=== PATIENT | female | born 1985 | race Caucasian/White ===

== ENCOUNTER 2016-11-30 18:17 | Inpatient (IN) ==
--- NOTE | 2016-11-30 18:19 | Emergency Department Note ---
Disposition Clinical Impression: Anxiety, Depression, Suicidal ideation Disposition: Admitted As Inpatient Condition: Fair Referrals: NO,PCP [Primary Care Provider] - Forms: ED Satisfaction Letter General Adult HPI - General Chief complaint: ED Overdose Stated complaint: Overdose Time Seen by Provider: 11/30/16 18:19 - History of Present Illness HPI Narrative: 30-year-old female history of chronic anxiety and depression reports to the emergency department via EMS, there is concern that she used heroin. The patient states she has been increasingly anxious and just wanted to escape, she wishes she had never woken up. There is concern that she attempted to overdose. The patient reports somewhat from her family must of called EMS. She does not represent everything that happened. There is no history of previous diabetes or hypoglycemia. There is no history of seizure-like activity or trauma. The patient denies any injuries or pain or self-injurious behavior otherwise. There is no history of head trauma, no history of bowel or bladder problems or weakness or numbness in the arms or legs. There is no history of abdominal pain vomiting or diarrhea. No chest pain or shortness of breath cough no blood or fever. No neck stiffness or rash. No acute back pain vaginal discharge or bleeding noted or reported. The patient has been taking antidepressant medication for many years. She reports they are not helpful. She feels hopeless and apparently attempted to end her life via her heroin injection. 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 Past Medical History - Past Medical History Medical history: Reports: no medical history, other - Social History Smoking Status: Never smoker Smokeless Tobacco Status: No Alcohol use: Reports: none Physical Exam - General Limitations: no limitations General appearance: alert, anxious, other (Laying supine on the gurney cooperative communicative appears to be anxious and tearful.) - Head Head exam: atraumatic, normocephalic, normal inspection - Eye Eye exam: Present: normal appearance, PERRL, EOMI - ENT ENT exam: normal exam, normal oropharynx, mucous membranes moist - Neck Neck exam: Present: full ROM, trachea midline, other (Minor erythema about the neck area without laceration or bruising.). Absent: tenderness, meningismus - Chest Chest inspection: Present: symmetric chest wall rise. Absent: tenderness - Respiratory Respiratory exam: Present: normal lung sounds bilaterally. Absent: respiratory distress - Cardiovascular Cardiovascular exam: Present: regular rate, normal rhythm, normal heart sounds - Abdominal Exam Abdominal exam: Present: soft, Non-Tender. Absent: tenderness, distention, guarding, rebound, rigidity, trauma - Extremities Exam Extremities exam: Present: normal inspection, full ROM, normal capillary refill , other (All extremities are warm and well perfused without cyanosis or edema no evidence of injury.). Absent: tenderness, pedal edema, joint swelling, calf tenderness - Expanded Lower Extremity Exam Lower leg exam: Absent: Homans' sign Neurovascular/Tendon exam: Absent: motor deficit, sensory deficit, tendon deficit - Back Exam Back exam: Present: normal inspection, full ROM. Absent: tenderness, CVA tenderness (R), CVA tenderness (L), vertebral tenderness - Neurological Exam Neurological exam: Present: alert, oriented X3, CN II-XII intact. Absent: motor sensory deficit - Psychiatric Psychiatric exam: Present: anxious, other (Tearful but cooperative and alert.) - Skin Skin exam: Present: warm, dry, intact, normal color. Absent: rash, cyanosis, diaphoresis, pallor, mottled Course Vital Signs Temperature 97.6 F 11/30/16 18:19 Pulse Rate 92 11/30/16 18:19 Respiratory Rate 16 11/30/16 18:19 Blood Pressure 151/92 11/30/16 18:19 O2 Sat by Pulse Oximetry 99 11/30/16 18:19 Temperature 97.6 F 11/30/16 18:19 Pulse Rate 93 11/30/16 19:16 Respiratory Rate 16 11/30/16 19:16 Blood Pressure 132/89 11/30/16 19:16 O2 Sat by Pulse Oximetry 99 11/30/16 19:16 Oxygen Delivery Oxygen Delivery Room Air Medical Decision Making - [facility] Narrative Medical decision making narrative: The patient has been anxious and depressed, and based on what history we can gather she was attempting to commit suicide by heroin overdose. Her urine toxicology is negative however. The patient has remained stable in the ED and has not been somnolent for confused. She has been somewhat tearful. There is no evidence of physical trauma or overt lab abnormality. She appears to be stable from a medical standpoint. We have consulted psychiatric service for evaluation. Psychiatry has evaluated the patient she will be admitted to their service. - Lab Data Lab results reviewed: Yes I reviewed the patient's lab results. Result diagrams: 11/30/16 18:54 11/30/16 18:54 Lab Results 11/30/16 11/30/16 11/30/16 Range/Units 18:46 18:46 18:54 WBC 13.7 H (4.3-11.1) K/mcL RBC 4.56 (3.82-4.97) M/mcL Hgb 13.4 (11.5-15.4) g/dL Hct 39.9 (35.3-44.9) % MCV 87.5 (83.0-100.0) fL MCH 29.4 (28.0-33.3) pg MCHC 33.6 (31.6-35.5) g/dL RDW 13.3 (11.5-14.5) % Plt Count 306 (140-400) K/mcL MPV 9.3 L (9.4-12.4) fL Immature Gran % 0.6 (0-4) % Seg Neutrophils % 81.3 % Lymphocytes % 14.1 % Monocytes % 3.6 % Eosinophils % 0.1 % Basophils % 0.3 % Neutrophils # 11.2 H (1.6-8.9) K/mcL Lymphocytes # 1.9 (0.6-4.6) K/mcL Monocytes # 0.5 (0.0-1.3) K/mcL Eosinophils # 0.0 (0.0-0.6) K/mcL Basophils # 0.0 (0.0-0.2) K/mcL Sodium (136-145) mEq/L Potassium (3.5-4.5) mEq/L Chloride (98-109) mEq/L Carbon Dioxide (19-29) mEq/L BUN (7-20) mg/dL Creatinine (0.57-1.11) mg/dL Est GFR ( Amer) (> 60) Est GFR (Non-Af Amer) (> 60) BUN/Creatinine Ratio (6-26) Glucose (70-99) mg/dL Calculated Osmolality (280-300) Calcium (8.6-10.8) mg/dL Urine Color Yellow (Yellow) Urine Clarity Clear (Clear) Urine pH 6.0 (5.0-8.0) pH Units Ur Specific [place] 1.020 (1.010-1.025) Urine Protein 30 H (Neg-Trace) mg/dL Urine Glucose (UA) 100 H (Normal) mg/dL Urine Ketones Negative (Negative) mg/dL Urine Blood Negative (Negative) Urine Nitrite Negative (Negative) Urine Bilirubin Negative (Negative) Urine Urobilinogen Normal (Normal) mg/dL Ur Leukocyte Esterase Negative (Negative) Urine Microscopic RBC 0-3 (0-3) per hpf Urine Microscopic WBC 0-3 (0-3) per hpf Ur Squamous Epith Cells Many H (None-Few) per lpf Urine Bacteria Few (None-Few) per hpf Hyaline Casts None Seen (None-Few) per lpf Urine Yeast Few H (None Seen) per hpf Salicylates (15-30) mg/dL Urine Opiates Screen Negative (Yelxje=017) ng/mL Acetaminophen (10-30) mcg/mL Ur Barbiturates Screen Negative (Cdfrin=285) ng/mL Ur Phencyclidine Scrn Negative (Cutoff=25) ng/mL Ur Amphetamines Screen Negative (Wbgvun=9029) ng/mL U Benzodiazepines Scrn Negative (Vxwefo=427) ng/mL Urine Cocaine Screen Negative (Cutoff= 300) ng/mL U Marijuana (THC) Screen Negative (Cutoff = 50) ng/mL Ethyl Alcohol (0-10) mg/dL 11/30/16 Range/Units 18:54 WBC (4.3-11.1) K/mcL RBC (3.82-4.97) M/mcL Hgb (11.5-15.4) g/dL Hct (35.3-44.9) % MCV (83.0-100.0) fL MCH (28.0-33.3) pg MCHC (31.6-35.5) g/dL RDW (11.5-14.5) % Plt Count (140-400) K/mcL MPV (9.4-12.4) fL Immature Gran % (0-4) % Seg Neutrophils % % Lymphocytes % % Monocytes % % Eosinophils % % Basophils % % Neutrophils # (1.6-8.9) K/mcL Lymphocytes # (0.6-4.6) K/mcL Monocytes # (0.0-1.3) K/mcL Eosinophils # (0.0-0.6) K/mcL Basophils # (0.0-0.2) K/mcL Sodium 141 (136-145) mEq/L Potassium 3.4 L (3.5-4.5) mEq/L Chloride 104 (98-109) mEq/L Carbon Dioxide 24 (19-29) mEq/L BUN 18 (7-20) mg/dL Creatinine 0.90 (0.57-1.11) mg/dL Est GFR ( Amer) > 60 (> 60) Est GFR (Non-Af Amer) > 60 (> 60) BUN/Creatinine Ratio 20 (6-26) Glucose 95 (70-99) mg/dL Calculated Osmolality 294 (280-300) Calcium 9.2 (8.6-10.8) mg/dL Urine Color (Yellow) Urine Clarity (Clear) Urine pH (5.0-8.0) pH Units Ur Specific [place] (1.010-1.025) Urine Protein (Neg-Trace) mg/dL Urine Glucose (UA) (Normal) mg/dL Urine Ketones (Negative) mg/dL Urine Blood (Negative) Urine Nitrite (Negative) Urine Bilirubin (Negative) Urine Urobilinogen (Normal) mg/dL Ur Leukocyte Esterase (Negative) Urine Microscopic RBC (0-3) per hpf Urine Microscopic WBC (0-3) per hpf Ur Squamous Epith Cells (None-Few) per lpf Urine Bacteria (None-Few) per hpf Hyaline Casts (None-Few) per lpf Urine Yeast (None Seen) per hpf Salicylates < 5.0 L (15-30) mg/dL Urine Opiates Screen (Kamudx=893) ng/mL Acetaminophen < 1.0 L (10-30) mcg/mL Ur Barbiturates Screen (Qcyndr=141) ng/mL Ur Phencyclidine Scrn (Cutoff=25) ng/mL Ur Amphetamines Screen (Rrlkbx=1338) ng/mL U Benzodiazepines Scrn (Vneinw=115) ng/mL Urine Cocaine Screen (Cutoff= 300) ng/mL U Marijuana (THC) Screen (Cutoff = 50) ng/mL Ethyl Alcohol < 10 (0-10) mg/dL
[2016-11-30 19:01] LABS: Bilirubin,Urine Negative (Negative); Blood,Urine Negative (Negative); Clarity,Urine Clear (Clear); Color,Urine Yellow (Yellow); Glucose,Urine (UA) 100 mg/dL (Normal); Ketones,Urine Negative (Negative); Leukocyte Esterase,Urine Negative (Negative); Nitrite,Urine Negative (Negative); Protein,Urine 30 mg/dL (Neg-Trace); Urobilinogen,Urine Normal (Normal)
[2016-11-30 19:03] LABS: Bacteria,Urine Few per hpf (None-Few); Hyaline Casts,Urine None Seen per lpf (None-Few); Squamous Epithelial Cell,Urine Many per lpf (None-Few); WBC,Urine 0-3 per hpf (0-3)
[2016-11-30 19:09] LABS: Basophils % 0.3 %; Eosinophils % 0.1 %; Hematocrit 39.9 % (35.3-44.9); Hemoglobin 13.4 g/dL (11.5-15.4); Immature Granulocytes % 0.6 % (0-4); Lymphocytes # 1.9 K/mcL (0.6-4.6); Lymphocytes % 14.1 %; Mean Corpuscular HGB Conc 33.6 g/dL (31.6-35.5); Mean Corpuscular Hemoglobin 29.4 pg (28.0-33.3); Mean Corpuscular Volume 87.5 fL (83.0-100.0); Mean Platelet Volume 9.3 fL (9.4-12.4); Monocytes # 0.5 K/mcL (0.0-1.3); Monocytes % 3.6 %; Neutrophils # 11.2 K/mcL (1.6-8.9); Platelet Count 306 K/mcL (140-400); Red Blood Count 4.56 M/mcL (3.82-4.97); Red Cell Distribution Width 13.3 % (11.5-14.5); Segmented Neutrophils % 81.3 %
[2016-11-30 19:09] LABS: Amphetamine Screen,Urine Negative ng/mL (Cutoff=1000); Barbiturate Screen,Urine Negative ng/mL (Cutoff=200); Benzodiazepines Screen,Urine Negative ng/mL (Cutoff=200); Cannabinoid Screen,Urine Negative ng/mL (Cutoff = 50); Cocaine Screen,Urine Negative ng/mL (Cutoff= 300); Opiate Screen,Urine Negative ng/mL (Cutoff=300); Phencyclidine Screen,Urine Negative ng/mL (Cutoff=25)
[2016-11-30 19:14] LABS: RBC,Urine 0-3 per hpf (0-3); Yeast,Urine Few per hpf (None Seen)
[2016-11-30 19:20] LABS: BUN/Creatinine Ratio 20 (6-26); Blood Urea Nitrogen 18 mg/dL (7-20); Calcium 9.2 mg/dL (8.6-10.8); Carbon Dioxide 24 mEq/L (19-29); Chloride 104 mEq/L (98-109); Glucose 95 mg/dL (70-99); Osmolality,Calculated 294 (280-300); Potassium 3.4 mEq/L (3.5-4.5); Sodium 141 mEq/L (136-145); eGFR For African Americans > 60 (> 60); eGFR For Non-African Americans > 60 (> 60)
[2016-11-30 19:21] LABS: Acetaminophen < 1.0 mcg/mL (10-30); Ethanol < 10 mg/dL (0-10); Salicylate < 5.0 mg/dL (15-30)
[2016-11-30] MEDS ORDERED: MOM Conc 10 ML UD.LIQ PO PRN (21:26)
[2016-11-30] MEDS ORDERED: Acetaminophen 325 MG TABLET PO PRN (21:26)
[2016-11-30] MEDS ORDERED: *HR* LORazepam 2 MG/ML VIAL IM PRN (21:26)
[2016-11-30] MEDS ORDERED: Mag Hydrox/Al Hydrox/Simeth 30 ML UDC PO PRN (21:26)
[2016-11-30] MEDS ORDERED: Haloperidol Lactate 5 MG/ML VIAL IM PRN (21:26)
[2016-11-30] MEDS ORDERED: *HR* LORazepam 1 MG TABLET PO PRN (21:26)
[2016-11-30] MEDS: traZODone 50 MG TABLET PO PRN (21:42)
[2016-11-30] MEDS: hydrOXYzine pamoate 25 MG CAPSULE PO PRN (21:42)
[2016-12-01] MEDS: hydrOXYzine pamoate 25 MG CAPSULE PO PRN (09:46)
--- NOTE | 2016-12-01 15:42 | Psychiatry History & Physical ---
Date of Encounter: 12/01/16 Time of Encounter: 15:10 History of Present Illness Patient Stated Chief Complaint: "I guess I overdosed." Medicare Admission Attestation: For traditional Medicare patients the provided hospital inpatient services are reasonable and necessary and in the case of services not specified as inpatient -only under 42 CFR 419.22 (n), that they are appropriately provided as inpatient services in accordance 42 CFR 412.3. For Critical Access Hospital the patient may reasonably be expected to be discharged or transferred to a hospital within 96 hours after admission to the Critical Access Hospital. Admitted From: Emergency Dept Plans for Post Hospital Care: Home History of Present Illness: Ms. Lee is a 31 year old female admitted to 1A psychiatric unit after a possible suicide attempt via overdose. Patient states that she thinks she overdosed but denies doing it intentionally. She has been increasingly depressed lately. Her boyfriend is in [place] [facility] for not paying child support, her birthday is today, and she is living with her parents and has not job and no financial income to support herself. She tells me the previous night that she had a couple of beers, took a couple Xanax she bought off somebody and then "shot up a small amount of heroin". (Note: her UDS was clean of all drugs of abuse in the ED) She states the next thing she remembers was waking up with her father over her and the paramedics. She is visibly upset at what she did. 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 She said that Suboxone was tapered off in September 2016 as her father did not want her taking it. He referred to it as "Synthetic heroin. " She has been clean from drugs for the past 3 months. She states that she has been feeling more depressed lately having low energy, problems sleeping, feeling helpless about life secondary to not having a job and financial issues. She stated with her birthday coming up she is feeling more hopeless about things and feeling depressed about her support system. She told me "My dad gives me no support. He does not even acknowledge me at times" . She talks about her frustration of not having a job nor having a drivers license being able to get to work if she did have work available. She does not feel like doing things that she used to do, and has a hard time sleeping at night secondary to depressive ruminations. She denies active suicidal or homicidal ideation, she denies auditory or visual hallucinations, she denies mind reading/thought control, she denies any type of paranoia, she denies any gambling or other impulsive acts. She states that she regrets what she did, and acknowledges that she needs some kind of help with her depression. She states that she has been on Paxil for the most part the last 15 years plus. She used to be on 60 mg/day, but that Dr. Kalyan castillo at [place] had lowered it and she is not sure why. She states that she has been tried on Celexa and Lexapro in the past and that did not help. Past Med Surg Social Fam HX - Past Medical History Medical history: no medical history - Past Psychiatric History Psychiatric history: Reports: depression, previous psychiatric hospitalization Past psychiatric history details: She states that she cut her wrist in 2006 after being arrested fro a DUI secondary to all the stress Family psychiatric history: Yes Family Psychiatric History Details: Father: Anxiety. 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 - Family History Mother Hx Family Cardiac Disorders: Yes (hypertension) Father Hx Family Psychosocial Disorders: Yes (anxiety) Medications & Allergies Paroxetine HCl [Paxil] 20 mg PO BID #60 tablet 06/10/15 [Rx] Paxil 06/10/15 [History] Allergies No Known Allergies Allergy (Verified 06/10/15 15:51) Review of Systems Psychiatric: Reports: depression, anxiety, abnormal sleep pattern, suicidal ideation, hopelessness Mental Status Exam Patient orientation: Yes Person, Yes Time, Yes Place, Yes Circumstance Level of alertness: Alert Patient appearance: Well Groomed Behavior: anxious, tearful Psychomotor activity: Normal Eye contact: Fleeting Contact Mood description: Depressed Affect description: congruent with mood Speech pattern: Normal rate, Normal rhythm, Normal tone, Appropriate Speech volume: Normal Thought process: Linear Thought content: Yes Suicidal ideation (passive; helpless in life) Attention span: Capable of Focused Attention Memory description: Grossly Intact Patient reliability: Questionable Historian Intelligence estimate: Above [place] Judgment: Fair Insight: Partial Results - Vital Signs Vital signs: Temp Pulse Resp BP Pulse Ox 98.1 F 96 16 120/83 99 12/01/16 08:52 12/01/16 08:52 12/01/16 08:52 12/01/16 08:52 11/30/16 19:16 - Labs Labs: Laboratory Last Values WBC 13.7 K/mcL (4.3-11.1) H 11/30/16 18:54 RBC 4.56 M/mcL (3.82-4.97) 11/30/16 18:54 Hgb 13.4 g/dL (11.5-15.4) 11/30/16 18:54 Hct 39.9 % (35.3-44.9) 11/30/16 18:54 MCV 87.5 fL (83.0-100.0) 11/30/16 18:54 MCH 29.4 pg (28.0-33.3) 11/30/16 18:54 MCHC 33.6 g/dL (31.6-35.5) 11/30/16 18:54 RDW 13.3 % (11.5-14.5) 11/30/16 18:54 Plt Count 306 K/mcL (140-400) 11/30/16 18:54 MPV 9.3 fL (9.4-12.4) L 11/30/16 18:54 Immature Gran % 0.6 % (0-4) 11/30/16 18:54 Seg Neutrophils % 81.3 % 11/30/16 18:54 Lymphocytes % 14.1 % 11/30/16 18:54 Monocytes % 3.6 % 11/30/16 18:54 Eosinophils % 0.1 % 11/30/16 18:54 Basophils % 0.3 % 11/30/16 18:54 Neutrophils # 11.2 K/mcL (1.6-8.9) H 11/30/16 18:54 Lymphocytes # 1.9 K/mcL (0.6-4.6) 11/30/16 18:54 Monocytes # 0.5 K/mcL (0.0-1.3) 11/30/16 18:54 Eosinophils # 0.0 K/mcL (0.0-0.6) 11/30/16 18:54 Basophils # 0.0 K/mcL (0.0-0.2) 11/30/16 18:54 Sodium 141 mEq/L (136-145) 11/30/16 18:54 Potassium 3.4 mEq/L (3.5-4.5) L 11/30/16 18:54 Chloride 104 mEq/L (98-109) 11/30/16 18:54 Carbon Dioxide 24 mEq/L (19-29) 11/30/16 18:54 BUN 18 mg/dL (7-20) 11/30/16 18:54 Creatinine 0.90 mg/dL (0.57-1.11) 11/30/16 18:54 Est GFR ( Amer) > 60 (> 60) 11/30/16 18:54 Est GFR (Non-Af Amer) > 60 (> 60) 11/30/16 18:54 BUN/Creatinine Ratio 20 (6-26) 11/30/16 18:54 Glucose 95 mg/dL (70-99) 11/30/16 18:54 Calculated Osmolality 294 (280-300) 11/30/16 18:54 Calcium 9.2 mg/dL (8.6-10.8) 11/30/16 18:54 Serum , Qual Negative (Negative) 11/30/16 18:59 Urine Color Yellow (Yellow) 11/30/16 18:46 Urine Clarity Clear (Clear) 11/30/16 18:46 Urine pH 6.0 pH Units (5.0-8.0) 11/30/16 18:46 Ur Specific [place] 1.020 (1.010-1.025) 11/30/16 18:46 Urine Protein 30 mg/dL (Neg-Trace) H 11/30/16 18:46 Urine Glucose (UA) 100 mg/dL (Normal) H 11/30/16 18:46 Urine Ketones Negative mg/dL (Negative) 11/30/16 18:46 Urine Blood Negative (Negative) 11/30/16 18:46 Urine Nitrite Negative (Negative) 11/30/16 18:46 Urine Bilirubin Negative (Negative) 11/30/16 18:46 Urine Urobilinogen Normal mg/dL (Normal) 11/30/16 18:46 Ur Leukocyte Esterase Negative (Negative) 11/30/16 18:46 Urine Microscopic RBC 0-3 per hpf (0-3) 11/30/16 18:46 Urine Microscopic WBC 0-3 per hpf (0-3) 11/30/16 18:46 Ur Squamous Epith Cells Many per lpf (None-Few) H 11/30/16 18:46 Urine Bacteria Few per hpf (None-Few) 11/30/16 18:46 Hyaline Casts None Seen per lpf (None-Few) 11/30/16 18:46 Urine Yeast Few per hpf (None Seen) H 11/30/16 18:46 Salicylates < 5.0 mg/dL (15-30) L 11/30/16 18:54 Urine Opiates Screen Negative ng/mL (Cseskj=571) 11/30/16 18:46 Acetaminophen < 1.0 mcg/mL (10-30) L 11/30/16 18:54 Ur Barbiturates Screen Negative ng/mL (Vmhgej=766) 11/30/16 18:46 Ur Phencyclidine Scrn Negative ng/mL (Cutoff=25) 11/30/16 18:46 Ur Amphetamines Screen Negative ng/mL (Lymitn=9429) 11/30/16 18:46 U Benzodiazepines Scrn Negative ng/mL (Oewulw=105) 11/30/16 18:46 Urine Cocaine Screen Negative ng/mL (Cutoff= 300) 11/30/16 18:46 U Marijuana (THC) Screen Negative ng/mL (Cutoff = 50) 11/30/16 18:46 Ethyl Alcohol < 10 mg/dL (0-10) 11/30/16 18:54 Assessment and Plan (1) Depression Current visit: Yes Status: Acute Plan: Admit inpatient for safety and stabilization, Close observation, Encourage participation in unit milieu, Group Therapy, Family/Supportive other meeting Risks, benefits, side effects, alternatives discussed w/pt: Yes ( Increase in Paxil to 60 mg) Patient agreeable to treatment: Yes Plans for Post Hospital Care: Home Estimated Length of Stay (Days): 5 Qualifiers: Depression Type: major depressive disorder Major depression recurrence: recurrent Active/Remission status: currently active Major depression episode severity: moderate Qualified Code(s): F33.1 - Major depressive disorder, recurrent, moderate
[2016-12-01] MEDS: traZODone 50 MG TABLET PO PRN (20:47)
--- NOTE | 2016-12-02 12:55 | Psychiatry Progress Note ---
Date of Encounter: 12/02/16 Time of Encounter: 11:30 Subjective Interval history: The patient tells me today "I feel better". She states that she did not sleep well last night because she was "thinking about everything". She had a visit on the unit with her mother and states that it went well. She tells me that her father did not come to visit. She denies craving drugs, she denies any withdrawal symptoms. There is no suicidal or homicidal ideation, no auditory or visual hallucinations. She denies any side effects from an increase in the Paxil. She is not feeling as helpless as she did before, nor is she feeling as hopeless as she did since having a discussion with her mother. She does state that her energy is still low and that she feels tired. She is future oriented to getting discharged and hopefully seeing her boyfriend tomorrow who is getting out of [facility]. She denies any racing thoughts. She is eating well and denies any other issues. Review of Systems Psychiatric: Reports: depression, anxiety, abnormal sleep pattern, hopelessness Objective: Exam Patient orientation: Yes Person, Yes Time, Yes Place, Yes Circumstance Level of alertness: Alert Patient appearance: Well Groomed Behavior: anxious Psychomotor activity: Normal Eye contact: Minimal Contact Mood description: Depressed Affect description: congruent with mood Speech pattern: Normal rate, Normal rhythm, Normal tone, Appropriate Speech volume: Normal Thought process: Linear, Goal Oriented Judgment: Fair Insight: Partial Results - Vital Signs Vital Signs: Temp Pulse Resp BP Pulse Ox 97.5 F L 99 18 115/84 99 12/02/16 08:59 12/02/16 08:59 12/02/16 08:59 12/02/16 08:59 11/30/16 19:16 Assessment and Plan (1) Depression Current visit: Yes Status: Acute Risks, benefits, side effects, alternatives discussed w/pt: Yes (Increase in Paxil to 60 mg) Patient agreeable to treatment: Yes Qualifiers: Depression Type: major depressive disorder Major depression recurrence: recurrent Active/Remission status: currently active Major depression episode severity: moderate Qualified Code(s): F33.1 - Major depressive disorder, recurrent, moderate Consult Discharge Plan - Plan Referrals: NO,PCP [Primary Care Provider] -
[2016-12-02] MEDS: traZODone 50 MG TABLET PO PRN (21:09)
[2016-12-02] MEDS: hydrOXYzine pamoate 25 MG CAPSULE PO PRN (23:02)
[2016-12-03 08:40] VITALS: BP 126/91
--- NOTE | 2016-12-03 11:40 | Discharge Summary ---
Date of Encounter: 12/03/16 Time of Encounter: 10:55 Diagnosis - Discharge Diagnosis (1) Depression Status: Acute Qualifiers: Depression Type: major depressive disorder Major depression recurrence: recurrent Active/Remission status: currently active Major depression episode severity: moderate Qualified Code(s): F33.1 - Major depressive disorder, recurrent, moderate Medications - Discharge Medications Prescriptions: Paroxetine [Paxil] 30 mg PO BID #60 tablet TraZODone 50 mg PO HS PRN #10 tablet PRN Reason: Insomnia Paroxetine [Paxil] 30 mg PO BID #60 tablet 12/03/16 [Rx] TraZODone 50 mg PO HS PRN #10 tablet 12/03/16 [Rx] Allergies No Known Allergies Allergy (Verified 06/10/15 15:51) Provider Date of admission: 11/30/16 20:29 Primary care physician: PCP NO Discharging clinician: Jose Francisco Rocha Assessment and Plan - Patient/Caregiver Discharge Instructions Activity: resume usual activities as tolerated Diet: regular diet - Follow up Plan Follow up with: [facility] [Outside] (Office staff will contact you directly to schedule your intake appointment for counseling and case management services. You will see psychiatric prescriber, Andie Torres, on 01/16/2017 at 11:00 AM. Please arrive 15 minutes early for this appointment to complete paperwork. You may contact the office regularly to check for cancellations that may allow you to be seen sooner by the psychiatric prescriber.) Functional capacity at discharge: independent ambulation Overall status at discharge: Stable Disposition: Home, Self-Care Hospital Course Hospital course: Ms. Lee is a 31 year old female who tells me this morning that she is feeling "Great. I'm ready to be discharged". She states that her father came in last night for a family visit. She tells me it went well overall. She tells me that he has a problem with anxiety, which might be part of the issue in his ability to communicate with her. But she also states that he is just different than me and has a hard time talking with me. She denies any suicidal or homicidal ideation, she denies any auditory/visual hallucinations. She states her depression has improved and she denies any side effects of the increase in Paxil. She states that she can be compliant with medication when she is discharged without issue. She is sleeping well and is hopeful that things will continue to get better. She is not having any craving for any heroin or other drugs. She does not plan to go back on Suboxone. She is ready for discharge and will call a family member to let them know she can be picked up.She had a visit with her mother the night previous that went well. She states her mother is very supportive and understanding and she can talk to her about things. 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 Her boyfriend is being released from [facility] sn[facility] today, child support issues, and she is looking forward to seeing him tonight. - Time Spent with Patient Total time spent providing and/or coordinating discharge services: 20 min Less than 30 minutes Quality - Multiple Antipsychotics Patient discharged on 2 or more antipsychotic medications: No Procedures - Procedures Procedures: Medication Management, Crisis Stabilization, Psychoeducational Therapy Mental Status Exam - Mental Status Exam Patient orientation: Yes Person, Yes Time, Yes Place, Yes Circumstance Level of alertness: Alert Patient appearance: Well Groomed Behavior: calm Psychomotor activity: Normal Eye contact: Maintains Eye Contact Mood description: Euthymic/stable Affect description: congruent with mood Speech pattern: Normal rate, Normal rhythm, Normal tone, Appropriate Speech Volume: Normal Thought process: Linear, Goal Oriented Thought Content: Yes Intact Judgment: Good Insight: Partial
== END 2016-12-03 17:05 | disposition home or self-care (01) | DRG 812 ==
LOC: EMEROO 18:17 → 1ANU 20:29
PROVIDERS: ADMIT Psychiatry & Neurology Psychiatry; ATTEND Psychiatry & Neurology Psychiatry

== ENCOUNTER 2019-05-17 19:03 | Observation (INO) ==
--- NOTE | 2019-05-17 19:15 | Emergency Department Note ---
Disposition Clinical Impression: Abdominal pain, Diarrhea, IVDU (intravenous drug user), Methamphetamine abuse, Ileus Disposition: Admitted As Inpatient Referrals: Maddi Morris, [employer] [Primary Care Provider] - Forms: ED Satisfaction Letter, Work/School Release Time of Disposition: 22:45 General Adult HPI - General Chief complaint: ED Abdominal Pain Stated complaint: ABD Pain,Diahrrea Time Seen by Provider: 05/17/19 19:14 Source: patient Limitations: no limitations - History of Present Illness HPI Narrative: 33-year-old female reports emergency department complaining of recurrent yellow diarrhea. She states she has had recurrent diarrhea for 5 days. There has been no blood in the emesis. She describes burping but no vomiting. No chest pain or shortness of breath. She is not known to be diabetic. There is no history of flank pain urinary symptomatology vaginal discharge or bleeding. She is not anticoagulated. The patient reports she has been in an unsanitary environment feels this may be contributory. She has not traveled recently or utilized antibiotics recently. The patient has had no recent abdominal surgery. She has a known history of IV drug abuse. There is no history of suicidality homicidality or overdose. No fevers rashes or change in urinary pattern. The patient describes diffuse abdominal pain and abdominal bloating. No sick contacts are reported. Pain Scale: 9 - Related Data Home Medications Medication Instructions Recorded Confirmed Paroxetine [Paxil] 30 mg PO DAILY 05/17/19 05/17/19 Allergies Allergy/AdvReac Type Severity Reaction Status Date / Time No Known Allergies Allergy Verified 05/17/19 19:27 All systems ED: reviewed and negative except as stated. Past Medical History - Past Medical History Medical history: Reports: no medical history Psychiatric history: Reports: depression, previous psychiatric hospitalization - Social History Smoking Status: Never smoker Smokeless Tobacco Status: No Alcohol use: Reports: occasionally Drug use: Reports: opiates, IV Drug Use Physical Exam - General Limitations: no limitations General appearance: alert, in no apparent distress - Head Head exam: atraumatic, normocephalic, normal inspection - Eye Eye exam: Present: normal appearance, PERRL, EOMI - ENT ENT exam: normal exam, normal oropharynx, mucous membranes moist, normal external ear exam - Neck Neck exam: Present: normal inspection, full ROM, trachea midline - Chest Chest inspection: Present: symmetric chest wall rise. Absent: tenderness - Respiratory Respiratory exam: Present: normal lung sounds bilaterally. Absent: respiratory distress, accessory muscle use, prolonged expiratory phase - Cardiovascular Cardiovascular exam: Present: normal rhythm, tachycardia - Abdominal Exam Abdominal exam: Present: soft, tenderness, distention. Absent: guarding, rebound, rigidity, trauma, Silveira's sign, Rovsing's sign, tenderness at McBurney's Point Abdominal tenderness: Present: diffuse, moderate - Extremities Exam Extremities exam: Present: full ROM, normal capillary refill, other (Track nicholas on the arms without evidence of cali cellulitis or abscess. No blackening or crepitance of the skin. No blistering oozing weeping or scaling.). Absent: tenderness, pedal edema, joint swelling, calf tenderness - Expanded Lower Extremity Exam Neurovascular/Tendon exam: Present: normal capillary refill. Absent: motor deficit, sensory deficit, tendon deficit, extremity cold to touch, pallor - Back Exam Back exam: Present: normal inspection, full ROM. Absent: tenderness, CVA tenderness (R), CVA tenderness (L), vertebral tenderness - Neurological Exam Neurological exam: Present: alert, oriented X3, CN II-XII intact. Absent: motor sensory deficit - Psychiatric Psychiatric exam: Present: normal affect, normal mood - Skin Skin exam: Present: warm, dry, intact, normal color Course Vital Signs Temperature 98.2 F 05/17/19 19:04 Pulse Rate 101 05/17/19 19:04 Respiratory Rate 16 05/17/19 19:04 Blood Pressure 131/96 05/17/19 19:04 O2 Sat by Pulse Oximetry 98 05/17/19 19:04 Temperature 98.2 F 05/17/19 19:04 Pulse Rate 97 05/17/19 19:41 Respiratory Rate 20 05/17/19 19:41 Blood Pressure 137/97 05/17/19 19:41 O2 Sat by Pulse Oximetry 100 05/17/19 19:44 Oxygen Delivery Oxygen Delivery Room Air Medical Decision Making - [facility] Narrative Medical decision making narrative: The patient describes recurrent eructation without vomiting, she reports she has had persistent abdominal distention for the last week or so. She describes yellowish diarrhea. No recent antibiotic usage. Generalized abdominal pain is reported. The patient has a history of IV drug abuse, her urine toxicology study does not show opiates but does show amphetamine. Basic laboratory testing urinalysis show no major abnormality. CT scan of the abdomen pelvis reveals significant intestinal gas food and fluid possible enterocolitis however distal bowel obstruction cannot be excluded. I consulted with Dr. Simms civil division deputy sheriff on-call who recommends NG tube placement hospitalization under medical service with surgical consult as well as GI consult. I consulted with the surgicalist on-call Dr. Hathaway who concurs with admission and will act as communications consultant. The patient's highly agreeable does not feel comfortable going home. I discussed the case with the hospitalist on-call who has accepted the patient to their care. The patient is currently stable pending admission. NG tube has been ordered. - Lab Data Lab results reviewed: Yes I reviewed the patient's lab results. Result diagrams: 05/17/19 19:34 05/17/19 19:34 Lab Results 05/17/19 05/17/19 05/17/19 Range/Units 19:34 19:34 19:34 WBC 6.9 (4.3-11.1) K/mcL RBC 4.96 (3.82-4.97) M/mcL Hgb 14.0 (11.5-15.4) g/dL Hct 41.6 (35.3-44.9) % MCV 83.9 (83.0-100.0) fL MCH 28.2 (28.0-33.3) pg MCHC 33.7 (31.6-35.5) g/dL RDW 13.2 (11.5-14.5) % Plt Count 279 (140-400) K/mcL MPV 10.2 (9.4-12.4) fL Immature Gran % 0.1 (0-4) % Seg Neutrophils % 46.4 % Lymphocytes % 44.1 % Monocytes % 7.5 % Eosinophils % 1.3 % Basophils % 0.6 % Neutrophils # 3.2 (1.6-8.9) K/mcL Lymphocytes # 3.0 (0.6-4.6) K/mcL Monocytes # 0.5 (0.0-1.3) K/mcL Eosinophils # 0.1 (0.0-0.6) K/mcL Basophils # 0.0 (0.0-0.2) K/mcL Reactive Lymphocytes Present A (Not Present) Platelet Estimate Normal (Normal) Sodium 137 (136-145) mEq/L Potassium 4.4 (3.5-5.1) mEq/L Chloride 103 (98-107) mEq/L Carbon Dioxide 24 (23-29) mEq/L BUN 13 (6-20) mg/dL Creatinine 0.93 (0.60-1.20) mg/dL Est GFR ( Amer) > 60 (> 60) Est GFR (Non-Af Amer) > 60 (> 60) BUN/Creatinine Ratio 14 (6-26) Glucose 98 (70-105) mg/dL Calculated Osmolality 284 (280-300) Lactic Acid 1.8 (0.5-2.2) mmol/L Calcium 9.9 (8.6-10.3) mg/dL Total Bilirubin 0.6 (0.3-1.0) mg/dL Direct Bilirubin 0.2 (0.0-0.2) mg/dL Indirect Bilirubin 0.4 (0.0-1.2) mg/dL AST 16 (13-39) Units/L ALT 11 (7-52) Units/L Alkaline Phosphatase 57 (34-104) Units/L C-Reactive Protein (Less than 10) mg/L Serum Total Protein 7.7 (6.4-8.9) g/dL Albumin 4.5 (3.5-5.7) g/dL Globulin 3.2 (2.4-3.5) g/dL Albumin/Globulin Ratio 1.4 (1.1-2.2) Lipase 20 (11-82) Units/L Serum , Qual (Negative) Ur Specimen Adequacy Urine Color (Yellow) Urine Clarity (Clear) Urine pH (5.0-8.0) pH Units Ur Specific [place] (1.010-1.025) Urine Protein (Neg-Trace) mg/dL Urine Glucose (UA) (Normal) mg/dL Urine Ketones (Negative) mg/dL Urine Blood (Negative) Urine Nitrite (Negative) Urine Bilirubin (Negative) Urine Urobilinogen (Normal) mg/dL Ur Leukocyte Esterase (Negative) Urine Microscopic RBC (0-3) per hpf Urine Microscopic WBC (0-3) per hpf Ur Squamous Epith Cells (None-Few) per lpf Urine Bacteria (None-Few) per hpf Ur Culture Indicated? (NO) Urine Opiates Screen (Adefnm=953) ng/mL Ur Buprenorphine Scrn (Cutoff=5) ng/mL Ur Barbiturates Screen (Gdwolh=746) ng/mL Ur Phencyclidine Scrn (Cutoff=25) ng/mL Ur Amphetamines Screen (Fmeirf=2622) ng/mL U Benzodiazepines Scrn (Hmzxfv=366) ng/mL Urine Cocaine Screen (Cutoff= 300) ng/mL U Marijuana (THC) Screen (Cutoff = 50) ng/mL Ur Drug Screen Interp 05/17/19 05/17/19 05/17/19 Range/Units 19:34 19:34 19:54 WBC (4.3-11.1) K/mcL RBC (3.82-4.97) M/mcL Hgb (11.5-15.4) g/dL Hct (35.3-44.9) % MCV (83.0-100.0) fL MCH (28.0-33.3) pg MCHC (31.6-35.5) g/dL RDW (11.5-14.5) % Plt Count (140-400) K/mcL MPV (9.4-12.4) fL Immature Gran % (0-4) % Seg Neutrophils % % Lymphocytes % % Monocytes % % Eosinophils % % Basophils % % Neutrophils # (1.6-8.9) K/mcL Lymphocytes # (0.6-4.6) K/mcL Monocytes # (0.0-1.3) K/mcL Eosinophils # (0.0-0.6) K/mcL Basophils # (0.0-0.2) K/mcL Reactive Lymphocytes (Not Present) Platelet Estimate (Normal) Sodium (136-145) mEq/L Potassium (3.5-5.1) mEq/L Chloride (98-107) mEq/L Carbon Dioxide (23-29) mEq/L BUN (6-20) mg/dL Creatinine (0.60-1.20) mg/dL Est GFR ( Amer) (> 60) Est GFR (Non-Af Amer) (> 60) BUN/Creatinine Ratio (6-26) Glucose (70-105) mg/dL Calculated Osmolality (280-300) Lactic Acid (0.5-2.2) mmol/L Calcium (8.6-10.3) mg/dL Total Bilirubin (0.3-1.0) mg/dL Direct Bilirubin (0.0-0.2) mg/dL Indirect Bilirubin (0.0-1.2) mg/dL AST (13-39) Units/L ALT (7-52) Units/L Alkaline Phosphatase (34-104) Units/L C-Reactive Protein 16 H (Less than 10) mg/L Serum Total Protein (6.4-8.9) g/dL Albumin (3.5-5.7) g/dL Globulin (2.4-3.5) g/dL Albumin/Globulin Ratio (1.1-2.2) Lipase (11-82) Units/L Serum , Qual Negative (Negative) Ur Specimen Adequacy See below A Urine Color Dark Yellow (Yellow) Urine Clarity Cloudy A (Clear) Urine pH 5.5 (5.0-8.0) pH Units Ur Specific [place] > 1.030 H (1.010-1.025) Urine Protein Trace (Neg-Trace) mg/dL Urine Glucose (UA) Normal (Normal) mg/dL Urine Ketones Trace H (Negative) mg/dL Urine Blood Negative (Negative) Urine Nitrite Negative (Negative) Urine Bilirubin Small H (Negative) Urine Urobilinogen Normal (Normal) mg/dL Ur Leukocyte Esterase Negative (Negative) Urine Microscopic RBC 0-3 (0-3) per hpf Urine Microscopic WBC 0-3 (0-3) per hpf Ur Squamous Epith Cells Many H (None-Few) per lpf Urine Bacteria Few (None-Few) per hpf Ur Culture Indicated? YES A (NO) Urine Opiates Screen (Njswis=865) ng/mL Ur Buprenorphine Scrn (Cutoff=5) ng/mL Ur Barbiturates Screen (Dcoqxh=413) ng/mL Ur Phencyclidine Scrn (Cutoff=25) ng/mL Ur Amphetamines Screen (Myzjxz=5559) ng/mL U Benzodiazepines Scrn (Qwxefg=852) ng/mL Urine Cocaine Screen (Cutoff= 300) ng/mL U Marijuana (THC) Screen (Cutoff = 50) ng/mL Ur Drug Screen Interp 05/17/19 Range/Units 19:54 WBC (4.3-11.1) K/mcL RBC (3.82-4.97) M/mcL Hgb (11.5-15.4) g/dL Hct (35.3-44.9) % MCV (83.0-100.0) fL MCH (28.0-33.3) pg MCHC (31.6-35.5) g/dL RDW (11.5-14.5) % Plt Count (140-400) K/mcL MPV (9.4-12.4) fL Immature Gran % (0-4) % Seg Neutrophils % % Lymphocytes % % Monocytes % % Eosinophils % % Basophils % % Neutrophils # (1.6-8.9) K/mcL Lymphocytes # (0.6-4.6) K/mcL Monocytes # (0.0-1.3) K/mcL Eosinophils # (0.0-0.6) K/mcL Basophils # (0.0-0.2) K/mcL Reactive Lymphocytes (Not Present) Platelet Estimate (Normal) Sodium (136-145) mEq/L Potassium (3.5-5.1) mEq/L Chloride (98-107) mEq/L Carbon Dioxide (23-29) mEq/L BUN (6-20) mg/dL Creatinine (0.60-1.20) mg/dL Est GFR ( Amer) (> 60) Est GFR (Non-Af Amer) (> 60) BUN/Creatinine Ratio (6-26) Glucose (70-105) mg/dL Calculated Osmolality (280-300) Lactic Acid (0.5-2.2) mmol/L Calcium (8.6-10.3) mg/dL Total Bilirubin (0.3-1.0) mg/dL Direct Bilirubin (0.0-0.2) mg/dL Indirect Bilirubin (0.0-1.2) mg/dL AST (13-39) Units/L ALT (7-52) Units/L Alkaline Phosphatase (34-104) Units/L C-Reactive Protein (Less than 10) mg/L Serum Total Protein (6.4-8.9) g/dL Albumin (3.5-5.7) g/dL Globulin (2.4-3.5) g/dL Albumin/Globulin Ratio (1.1-2.2) Lipase (11-82) Units/L Serum , Qual (Negative) Ur Specimen Adequacy Urine Color (Yellow) Urine Clarity (Clear) Urine pH (5.0-8.0) pH Units Ur Specific [place] (1.010-1.025) Urine Protein (Neg-Trace) mg/dL Urine Glucose (UA) (Normal) mg/dL Urine Ketones (Negative) mg/dL Urine Blood (Negative) Urine Nitrite (Negative) Urine Bilirubin (Negative) Urine Urobilinogen (Normal) mg/dL Ur Leukocyte Esterase (Negative) Urine Microscopic RBC (0-3) per hpf Urine Microscopic WBC (0-3) per hpf Ur Squamous Epith Cells (None-Few) per lpf Urine Bacteria (None-Few) per hpf Ur Culture Indicated? (NO) Urine Opiates Screen Negative (Ytizhz=958) ng/mL Ur Buprenorphine Scrn Negative (Cutoff=5) ng/mL Ur Barbiturates Screen Negative (Tdrusd=897) ng/mL Ur Phencyclidine Scrn Negative (Cutoff=25) ng/mL Ur Amphetamines Screen Positive H (Invizu=8940) ng/mL U Benzodiazepines Scrn Negative (Eabotg=691) ng/mL Urine Cocaine Screen Negative (Cutoff= 300) ng/mL U Marijuana (THC) Screen Negative (Cutoff = 50) ng/mL Ur Drug Screen Interp See Below - Radiology Data Radiology results reviewed: Yes I reviewed the patient's radiology results.
[2019-05-17] MEDS ORDERED: 0.9 % Sodium Chloride 1,000 ML IVC ONE (19:16)
[2019-05-17] MEDS ORDERED: Ondansetron 4 MG/2 ML VIAL IVP ONE (19:48)
[2019-05-17] MEDS ORDERED: Isovue-370 500 ML BOTTLE IVP ONE (19:48)
[2019-05-17] MEDS ORDERED: *HR* HYDROmorphone (PF) 1 MG/ML SYRINGE IVP ONE (19:48)
[2019-05-17 19:49] LABS: Basophils % 0.6 %; Eosinophils # 0.1 K/mcL (0.0-0.6); Eosinophils % 1.3 %; Hematocrit 41.6 % (35.3-44.9); Immature Granulocytes % 0.1 % (0-4); Lymphocytes % 44.1 %; Mean Corpuscular HGB Conc 33.7 g/dL (31.6-35.5); Mean Corpuscular Hemoglobin 28.2 pg (28.0-33.3); Mean Corpuscular Volume 83.9 fL (83.0-100.0); Mean Platelet Volume 10.2 fL (9.4-12.4); Monocytes # 0.5 K/mcL (0.0-1.3); Monocytes % 7.5 %; Neutrophils # 3.2 K/mcL (1.6-8.9); Platelet Count 279 K/mcL (140-400); Red Blood Count 4.96 M/mcL (3.82-4.97); Red Cell Distribution Width 13.2 % (11.5-14.5); Segmented Neutrophils % 46.4 %; White Blood Count 6.9 K/mcL (4.3-11.1)
[2019-05-17 20:11] LABS: Alanine Aminotransferase 11 Units/L (7-52); Albumin 4.5 g/dL (3.5-5.7); Albumin/Globulin Ratio 1.4 (1.1-2.2); Alkaline Phosphatase 57 Units/L (34-104); Aspartate Amino Transferase 16 Units/L (13-39); BUN/Creatinine Ratio 14 (6-26); Bilirubin,Direct 0.2 mg/dL (0.0-0.2); Bilirubin,Indirect 0.4 mg/dL (0.0-1.2); Bilirubin,Total 0.6 mg/dL (0.3-1.0); Blood Urea Nitrogen 13 mg/dL (6-20); Calcium 9.9 mg/dL (8.6-10.3); Carbon Dioxide 24 mEq/L (23-29); Chloride 103 mEq/L (98-107); Globulin 3.2 g/dL (2.4-3.5); Glucose 98 mg/dL (70-105); Lipase 20 Units/L (11-82); Osmolality,Calculated 284 (280-300); Platelet Estimate Normal (Normal); Potassium 4.4 mEq/L (3.5-5.1); Reactive Lymphocytes Present (Not Present); Sodium 137 mEq/L (136-145); Total Protein 7.7 g/dL (6.4-8.9); eGFR For African Americans > 60 (> 60); eGFR For Non-African Americans > 60 (> 60)
[2019-05-17 20:20] LABS: Bacteria,Urine Few per hpf (None-Few); Bilirubin,Urine Small (Negative); Blood,Urine Negative (Negative); Clarity,Urine Cloudy (Clear); Color,Urine Dark Yellow (Yellow); Glucose,Urine (UA) Normal (Normal); Ketones,Urine Trace mg/dL (Negative); Leukocyte Esterase,Urine Negative (Negative); Nitrite,Urine Negative (Negative); PH,Urine 5.5 pH Units (5.0-8.0); Protein,Urine Trace mg/dL (Neg-Trace); Specific Gravity,Urine > 1.030 (1.010-1.025); Squamous Epithelial Cell,Urine Many per lpf (None-Few); Urobilinogen,Urine Normal (Normal); WBC,Urine 0-3 per hpf (0-3)
[2019-05-17 20:22] LABS: RBC,Urine 0-3 per hpf (0-3)
[2019-05-17 20:28] LABS: Amphetamine Screen,Urine Positive ng/mL (Cutoff=1000); Barbiturate Screen,Urine Negative ng/mL (Cutoff=200); Benzodiazepines Screen,Urine Negative ng/mL (Cutoff=200); Cannabinoid Screen,Urine Negative ng/mL (Cutoff = 50); Cocaine Screen,Urine Negative ng/mL (Cutoff= 300); Opiate Screen,Urine Negative ng/mL (Cutoff=300); Phencyclidine Screen,Urine Negative ng/mL (Cutoff=25)
--- NOTE | 2019-05-18 00:25 | Internal Med History&Physical ---
Date of Encounter: 05/18/19 Time of Encounter: 00:24 Internal Medicine - H&P: HPI Chief complaint: diarrhea Admitted From: Home Plans for Post Hospital Care: Home History of present illness: Beverly Lee is a 33 year old woman with substance use disorder who presents to the emergency room planning of 5 days of diarrhea and abdominal cramping. She describes the content as yellowish in color and mucus-like in consistency. She says the pain is diffuse and cramping in nature accompanied by distension. She does not vomit but has foul-smelling eructation that is constant. She denies sick contacts and a travel history. She says she has been living under poor conditions of recent and only yesterday went back home to live with her parents. She took loperamide due to the frequency of her diarrhea and has not had any bowel movement since coming to the ER. Lab work was grossly unremarkable however her CT scan showed distension of her stomach fluid, gas and food debris as well as diffuse bowel wall thickening and distention with fluid and gas possibly ileus related to enterocolitis. She is admitted for further care. Vitals: Reviewed General: Uncomfortable appearing with antalgic posturing. Skin: Multiple macular lesions on extremities. Warm and dry. HEENT: Moist mucous membranes. No conjunctivae pallor. Neck: No lymphadenopathy. No JVD. No carotid bruits. No palpable thyroid. Chest: Normal thoracic expansion. Normal breath sounds. Clear to auscultation. Heart: Normal S1 & S2; rhythmic. No rubs or murmurs. Abdomen: Non-distended, soft and mildly tender to palpation predominantly in the right flank. No peritoneal reaction. Extremities: No clubbing, cyanosis or edema. No calf tenderness. Normal distal pulses. Neurological: Awake, alert and oriented to person, place and time. No focal deficits. Psych: Affect appropriate. Assessment/Plan 1. Enteritis: Will need to get a stool sample for testing given the duration and characteristics described. She is also at risk based on her recent poor living conditions that was infested with rats and roaches. The loperamide may have worsened her state since all the content that would otherwise be passed on is stagnating in her GI tract. Advise to not use any antimotility agents. Will keep her on fluid resuscitation and start empiric ciprofloxacin/metronidazole in the interim pending GI panel. Fluid resuscitation, analgesics and bowel decompre ssion ordered. 2. Substance use disorder: Last use of methamphetamine was a day ago. 5 minutes were spent counseling and educating the patient on this habit. information services consultant and resources were made available. 3. Depression: On paroxetine. 4. DVT prophylaxis: Antiembolic stockings ordered. Past Med Surg Social Fam HX - Past Medical History Medical history: no medical history Additional medical history: anxiety, depression, social phobia Psychiatric history: depression, previous psychiatric hospitalization - Past Surgical History Additional surgical history: cyst removed from throat - Social History Smoking Status: Never smoker Smokeless Tobacco Status: No Alcohol use: occasionally Drug use: opiates, IV Drug Use - Family History Mother Hx Family Cardiac Disorders: Yes (hypertension) Internal Medicine - H&P: Meds Loperamide HCl [Anti-Diarrheal] 2 mg PO PER PKG DI PRN 05/17/19 [History] Paroxetine [Paxil] 40 mg PO DAILY 05/17/19 [History] Allergy/AdvReac Type Severity Reaction Status Date / Time No Known Allergies Allergy Verified 05/17/19 22:50 All Systems PM: A 10-system review of systems was performed and is negative for pertinent findings except as documented above in the HPI. Family history reviewed and found non-contributory. - Constitutional Vitals: Temp Pulse Resp BP Pulse Ox 98.2 F 97 20 137/97 100 05/17/19 19:04 05/17/19 19:41 05/17/19 19:41 05/17/19 19:41 05/17/19 19:44 Exam: . Internal Med - H&P Results - Labs CBC & Chem 7: 05/17/19 19:34 05/17/19 19:34 Labs: Short CBC 05/17/19 Range/Units 19:34 WBC 6.9 (4.3-11.1) K/mcL Hgb 14.0 (11.5-15.4) g/dL Hct 41.6 (35.3-44.9) % Plt Count 279 (140-400) K/mcL Neutrophils # 3.2 (1.6-8.9) K/mcL BMP 05/17/19 19:34 Sodium 137 Potassium 4.4 Chloride 103 Carbon Dioxide 24 BUN 13 Creatinine 0.93 Glucose 98 Calcium 9.9 Liver Function 05/17/19 Range/Units 19:34 Total Bilirubin 0.6 (0.3-1.0) mg/dL Direct Bilirubin 0.2 (0.0-0.2) mg/dL AST 16 (13-39) Units/L ALT 11 (7-52) Units/L Alkaline Phosphatase 57 (34-104) Units/L Albumin 4.5 (3.5-5.7) g/dL Urine 05/17/19 Range/Units 19:54 Urine Color Dark Yellow (Yellow) Urine Clarity Cloudy A (Clear) Urine pH 5.5 (5.0-8.0) pH Units Ur Specific [place] > 1.030 H (1.010-1.025) Urine Protein Trace (Neg-Trace) mg/dL Urine Glucose (UA) Normal (Normal) mg/dL - Impressions ITS Impressions Abdomen/Pelvis CT 05/17/19 19:48 IMPRESSION: At least moderate distension of the stomach with fluid, gas and food debris. Wall thickening of the distal stomach is noted, possibly due to lack of distention of the viscus. Correlation for inflammation is recommended. Distention of the entire small and large bowel with fluid and gas, possibly ileus related to enterocolitis. Distal obstruction is not excluded. D/ / Courtney Rojas Cha, MD / Courtney Rojas Cha, MD Interpreting Provider: Courtney Rojas Cha, MD - Time Spent With Patient Total time spent is greater than 50% in coordination of care (as documented) at patient's floor/unit and/or counseling patient: Greater than 35 minutes
[2019-05-18] MEDS ORDERED: Ketorolac 30 MG/ML VIAL IVP ONE (00:29)
[2019-05-18 00:45] LABS: Basophils % 0.4 %; Eosinophils # 0.1 K/mcL (0.0-0.6); Eosinophils % 1.2 %; Hemoglobin 13.1 g/dL (11.5-15.4); Immature Granulocytes % 0.1 % (0-4); Lymphocytes # 2.9 K/mcL (0.6-4.6); Lymphocytes % 38.1 %; Mean Corpuscular HGB Conc 34.5 g/dL (31.6-35.5); Mean Corpuscular Hemoglobin 28.9 pg (28.0-33.3); Mean Corpuscular Volume 83.7 fL (83.0-100.0); Mean Platelet Volume 9.5 fL (9.4-12.4); Monocytes # 0.6 K/mcL (0.0-1.3); Monocytes % 8.4 %; Neutrophils # 3.9 K/mcL (1.6-8.9); Platelet Count 280 K/mcL (140-400); Red Blood Count 4.54 M/mcL (3.82-4.97); Red Cell Distribution Width 13.2 % (11.5-14.5); Segmented Neutrophils % 51.8 %; White Blood Count 7.5 K/mcL (4.3-11.1)
[2019-05-18 01:13] LABS: BUN/Creatinine Ratio 13 (6-26); Blood Urea Nitrogen 10 mg/dL (6-20); Carbon Dioxide 21 mEq/L (23-29); Chloride 104 mEq/L (98-107); Glucose 112 mg/dL (70-105); Magnesium 1.4 mg/dL (1.6-2.6); Osmolality,Calculated 280 (280-300); Potassium 2.9 mEq/L (3.5-5.1); Sodium 135 mEq/L (136-145); eGFR For African Americans > 60 (> 60); eGFR For Non-African Americans > 60 (> 60)
[2019-05-18 01:24] LABS: Platelet Estimate Normal (Normal); Reactive Lymphocytes Present (Not Present)
[2019-05-18] MEDS: Ringers Solution, Lactated 1,000 ML IVC SCH ×2 (03:12→14:52)
[2019-05-18] MEDS: MetroNIDAZOLE 500 MG/100 ML 500 MG/100 ML BAG IVPB SCH ×4 (03:13→23:55)
[2019-05-18] MEDS ORDERED: Potassium Chloride 40 MEQ, Lidocaine 1% 2 ML in D5% in Water 500 ML IVPB ONE (03:34)
[2019-05-18] MEDS: Pantoprazole 40 MG VIAL IVP SCH (04:44)
--- NOTE | 2019-05-18 05:46 | AcuteCare Surgery Consult Note ---
Date of Encounter: 05/18/19 Time of Encounter: 05:00 Assessment and Plan (1) Abdominal pain Current Visit: Yes Status: Acute Abdominal pain with intractable nausea and vomiting in the setting of dilated stomach SB and colon. Recommend with IVF/NGT/NPO. Pt has so far refused NGT d/t pain at insertion. Treat pain and nausea with IV or SL meds. Follow labs. Will obtain barium enema to evaluate for distal obstruction. Qualifiers: Qualified Code(s): R10.9 - Unspecified abdominal pain (2) Nausea & vomiting Current Visit: Yes Status: Acute See above. Qualifiers: Qualified Code(s): R11.2 - Nausea with vomiting, unspecified History of Present Illness Consult date: 05/18/19 Reason for consult: abdominal pain (with nausea and vomiting) Requesting physician: Anthony Fuller History of present illness: This 33 y/o female presents to [facility] ED c/o severe and diffuse abdominal pain. She reports the pain has progressively worsened over the last 5 days. Pt reports that the pain is cramping in nature and severe. She reports the pain is nonradiating and diffuse. She reports the pain has all but subsided since she has been in the ED. She reports accompanying nausea and vomiting that is intractable. She reports the emesis is foul smelling. Last episode was 1 hour ago. She denies CP or SOB. She denies fevers. Past Med Surg Social Fam HX - Past Medical History Medical history: no medical history Additional medical history: anxiety, depression, social phobia Psychiatric history: depression, previous psychiatric hospitalization - Past Surgical History Additional surgical history: cyst removed from throat - Social History Smoking Status: Never smoker Smokeless Tobacco Status: No Alcohol use: occasionally Drug use: opiates, IV Drug Use - Family History Mother Hx Family Cardiac Disorders: Yes (hypertension) Medications and Allergies Loperamide HCl [Anti-Diarrheal] 2 mg PO PER PKG DI PRN 05/17/19 [History] Paroxetine [Paxil] 40 mg PO DAILY 05/17/19 [History] Allergy/AdvReac Type Severity Reaction Status Date / Time No Known Allergies Allergy Verified 05/17/19 22:50 Review of Systems All systems PM: The remainder of the systems were reviewed and are negative - Constitutional anorexia, fatigue, malaise, no chills, no excessive sweating, no headache(s), no night sweats, no weakness - EENT Nose, mouth and throat: dry mouth, no dysphagia, no nasal congestion, no nasal d ischarge, no sinus pressure, no sore throat, no throat swelling - Cardiovascular no chest pain, no claudication, no diaphoresis, no edema - Respiratory no cough, no dyspnea, no wheezing - Gastrointestinal abdominal pain, belching, bloating, cramping, diarrhea, nausea, vomiting, no coffee ground emesis, no constipation, no hematemesis - Genitourinary Genitourinary: no difficulty urinating, no flank pain, no urinary frequency - Musculoskeletal no back pain, no joint swelling, no limited range of motion, no neck pain - Integumentary dry skin, no pruritus, no rash, no wounds, no jaundice - Neurological no confusion, no dizziness, no focal weakness, no weakness - Psychiatric anxiety, depression - Hematologic/Lymphatic no easy bleeding, no easy bruising General Surgery Exam Initial Vital Signs Temp Pulse Resp BP Pulse Ox 98.2 F 101 16 131/96 98 05/17/19 19:04 05/17/19 19:04 05/17/19 19:04 05/17/19 19:04 05/17/19 19:04 - General physical appearance moderate distress, moderate pain. negative: jaundice - Eyes PERRL, normal ocular movement. negative: icteric - ENT no congestion, dry mucosa. negative: nasal discharge - Neck no masses, trachea midline, no lymphadectomy, no venous distension - Respiratory normal respiratory effort, clear to auscultation - Cardiovascular Cardiovascular exam: Present: RRR. Absent: JVD - Abdomen Abdomen general surgery: Present: bowel sounds present (hypoactive; no tinkling BS) - Genitourinary Present: normal external genitalia - Integumentary Integumentary general surgery: Present: warm and dry - Neurologic Present: CN 2-12 grossly intact, normal coordination - Musculoskeletal Present: normal posture - Psychiatric Psychiatric general surgery: Present: A&Ox3, appropriate Exam Initial Vital Signs Temp Pulse Resp BP Pulse Ox 98.2 F 101 16 131/96 98 05/17/19 19:04 05/17/19 19:04 05/17/19 19:04 05/17/19 19:04 05/17/19 19:04 Results - Labs 05/18/19 00:32 05/18/19 00:32 Abnormal lab results Reactive Lymphocytes Present (Not Present) A 05/18/19 00:32 Sodium 135 mEq/L (136-145) L 05/18/19 00:32 Potassium 2.9 mEq/L (3.5-5.1) L D 05/18/19 00:32 Carbon Dioxide 21 mEq/L (23-29) L 05/18/19 00:32 Glucose 112 mg/dL (70-105) H 05/18/19 00:32 Magnesium 1.4 mg/dL (1.6-2.6) L 05/18/19 00:32 C-Reactive Protein 16 mg/L (Less than 10) H 05/17/19 19:34 Ur Specimen Adequacy See below A 05/17/19 19:54 Urine Clarity Cloudy (Clear) A 05/17/19 19:54 Ur Specific [place] > 1.030 (1.010-1.025) H 05/17/19 19:54 Urine Ketones Trace mg/dL (Negative) H 05/17/19 19:54 Urine Bilirubin Small (Negative) H 05/17/19 19:54 Ur Squamous Epith Cells Many per lpf (None-Few) H 05/17/19 19:54 Ur Culture Indicated? YES (NO) A 05/17/19 19:54 Ur Amphetamines Screen Positive ng/mL ([id number]) H 05/17/19 19:54 Diabetes panel 05/17/19 05/18/19 Range/Units 19:34 00:32 Sodium 137 135 L (136-145) mEq/L Potassium 4.4 2.9 L D (3.5-5.1) mEq/L Chloride 103 104 (98-107) mEq/L Carbon Dioxide 24 21 L (23-29) mEq/L BUN 13 10 (6-20) mg/dL Creatinine 0.93 0.78 (0.60-1.20) mg/dL Glucose 98 112 H (70-105) mg/dL Calcium 9.9 9.0 (8.6-10.3) mg/dL AST 16 (13-39) Units/L ALT 11 (7-52) Units/L Alkaline Phosphatase 57 (34-104) Units/L Albumin 4.5 (3.5-5.7) g/dL Calcium panel 05/17/19 05/18/19 Range/Units 19:34 00:32 Calcium 9.9 9.0 (8.6-10.3) mg/dL Albumin 4.5 (3.5-5.7) g/dL Pituitary panel 05/17/19 05/18/19 Range/Units 19:34 00:32 Sodium 137 135 L (136-145) mEq/L Potassium 4.4 2.9 L D (3.5-5.1) mEq/L Chloride 103 104 (98-107) mEq/L Carbon Dioxide 24 21 L (23-29) mEq/L BUN 13 10 (6-20) mg/dL Creatinine 0.93 0.78 (0.60-1.20) mg/dL Glucose 98 112 H (70-105) mg/dL Calcium 9.9 9.0 (8.6-10.3) mg/dL Adrenal panel 05/17/19 05/18/19 Range/Units 19:34 00:32 Sodium 137 135 L (136-145) mEq/L Potassium 4.4 2.9 L D (3.5-5.1) mEq/L Chloride 103 104 (98-107) mEq/L Carbon Dioxide 24 21 L (23-29) mEq/L BUN 13 10 (6-20) mg/dL Creatinine 0.93 0.78 (0.60-1.20) mg/dL Glucose 98 112 H (70-105) mg/dL Calcium 9.9 9.0 (8.6-10.3) mg/dL Total Bilirubin 0.6 (0.3-1.0) mg/dL AST 16 (13-39) Units/L ALT 11 (7-52) Units/L Alkaline Phosphatase 57 (34-104) Units/L Albumin 4.5 (3.5-5.7) g/dL All other labs normal. - Imaging CT scan - abdomen: image reviewed (distented GI tract from stomach to rectum) CT scan - pelvis: image reviewed Consult Discharge Plan - Plan Referrals: Maddi Morris, [employer] [Primary Care Provider] -
--- NOTE | 2019-05-18 08:56 | Event Note ---
Date of Encounter: 05/18/19 Time of Encounter: 08:54 Radiology consulted for barium enema based on CT abdomen pelvis report not excluding distal colonic obstruction. I reviewed the imaging and do not feel that there is any evidence of focal narrowing within distal colon. The rectum is also dilated. Findings most likely relate to ileus. Barium enema would not be beneficial in this scenario.
[2019-05-18] MEDS ORDERED: Milk and Molasses Enema 200 ML RC ONE (11:36)
--- NOTE | 2019-05-18 12:47 | Gastroenterology Consult Note ---
Date of Encounter: 05/18/19 Time of Encounter: 09:20 - Assessment and plan (1) Abdominal pain Current Visit: Yes Status: Acute Assessment and plan: CT A/P with moderate distention of stomach with fluid, gas, and food, wall thickening of distal stomach, and distention of entire small bowel and large bowel with fluid and gas concerning for ileus versus obstruction. Surgical team following and recommended NPO, IVF, and NGT. Patient refused NGT and continues to refuse. Continue symptomatic treatment. Symptoms have improved per patient report. Recommend simethicone 125 mg QID. Qualifiers: Qualified Code(s): R10.9 - Unspecified abdominal pain - Time Spent With Patient Total time spent is greater than 50% in coordination of care (as documented) at patient's floor/unit and/or counseling patient: GI History of Present Illness - Data of Consult Patient: new to practice Consult date: 05/18/19 Requesting Physician: Mariposa Law MD - Consult Narrative Reason for consult: Ileus vs obstruction History of present illness: Ms. Lee is a 33 year old female with PMHx of substance abuse presented to the ED with 5 days of abdominal cramping and diarrhea. She denied any melena or hematochezia. She reports diffuse abdominal pain, cramping in nature, ac companied by distension. She also complains of foul-smelling emesis. CT A/P with moderate distention of stomach with fluid, gas, and food, wall thickening of distal stomach, and distention of entire small bowel and large bowel with fluid and gas concerning for ileus versus obstruction. Surgical team was consulted and recommended IV fluids, NG tube, and NPO. Patient refused NG tube. She reports her symptoms have significantly improved since admission. She has been started on IV fluids, Cipro, and Flagyl. Procedures: None NSAIDs: None Anticoagulation: None Past Med Surg Social Fam HX - Past Medical History Medical history: no medical history Additional medical history: anxiety, depression, social phobia Psychiatric history: depression, previous psychiatric hospitalization - Past Surgical History Additional surgical history: cyst removed from throat - Social History Smoking Status: Never smoker Smokeless Tobacco Status: No Alcohol use: occasionally Drug use: opiates, IV Drug Use - Family History Mother Hx Family Cardiac Disorders: Yes (hypertension) - Gastrointestinal Gastrointestinal: Present: as per HPI - Constitutional Constitutional: as per HPI - EENT Eyes: as per HPI Ears: Present: as per HPI Nose, mouth and throat: Present: as per HPI - Cardiovascular Cardiovascular ROS: Present: as per HPI - Respiratory Respiratory IM: Present: as per HPI - Genitourinary Genitourinary: Absent: change in color, Urinary frequency - Neurological ROS Neurological GI: Present: as per HPI - Hematologic/Lymphatic Hematologic/Lymphatic pediatric: Present: as per HPI - Musculoskeletal Musculoskeletal ROS GI: Present: as per HPI - Integumentary Integumentary GI: Present: as per HPI - Psychiatric ROS Psychiatric GI: Present: as per HPI - Endocrine Endocrine IM: Present: as per HPI - Constitutional Vitals: Temp Pulse Resp BP Pulse Ox 98.3 F 86 17 123/85 96 05/18/19 12:36 05/18/19 12:36 05/18/19 12:36 05/18/19 12:36 05/18/19 12:36 General appearance: Present: cooperative, A&O X 3, no acute distress, answers questions appropriately - Head Head exam: Present: atraumatic, normocephalic - Eye Eye exam: Present: normal appearance, sclera anicteric - ENT ENT exam: Present: mucous membranes moist - Neck Neck exam general surgery: Present: normal inspection, trachea midline - Respiratory Respiratory exam: Present: CTAB. Absent: rales, rhonchi - Cardiovascular Cardiovascular exam: Present: RRR, +S1, +S2 - GI/Abdominal GI/Abdominal exam: Present: normal bowel sounds, soft, tenderness (mild tenderness), no peritoneal signs. Absent: distended, firm, guarding - Rectal Rectal exam: Present: deferred - Extremities Exam Extremities exam: Present: warm - Neurological Exam Neurological exam: Present: no focal deficits - Psychiatric Psychiatric exam: Present: normal affect, normal mood - Skin Skin exam: Present: dry, intact, normal color, warm Results - Labs CBC & Chem 7: 05/18/19 00:32 05/18/19 00:32 Labs: Last Result 05/18/19 00:32 Calcium 9.0 Entire Visit 05/18/19 00:32 Hgb 13.1 Hct 38.0 - Impressions Impressions Abdomen/Pelvis CT 05/17/19 19:48 IMPRESSION: At least moderate distension of the stomach with fluid, gas and food debris. Wall thickening of the distal stomach is noted, possibly due to lack of distention of the viscus. Correlation for inflammation is recommended. Distention of the entire small and large bowel with fluid and gas, possibly ileus related to enterocolitis. Distal obstruction is not excluded. D/ / Courtney Rojas Cha, MD / Courtney Rojas Cha, MD Interpreting Provider: Courtney Rojas Cha, MD Consult Discharge Plan - Plan Referrals: Maddi Morris, [employer] [Primary Care Provider] -
[2019-05-18] MEDS: Simethicone 40 MG/0.6 ML MLS PO SCH ×3 (14:24→20:37)
[2019-05-18] MEDS ORDERED: Td (TENIVAC) Vaccine 0.5 ML VIAL IM ONE (14:27)
[2019-05-18] MEDS ORDERED: Ondansetron 4 MG/2 ML VIAL IVP PRN (14:48)
--- NOTE | 2019-05-18 14:55 | Internal Med Progress Note ---
<Archie Weaver N - Last Filed: 05/18/19 16:38> Hospitalist Progress Note - Encounter Date of Encounter: 05/18/19 Time of Encounter: 14:53 - Subjective Interval History: Patient states she is feeling slightly better at the time of seeing her. She is lying comfortably in the bed. Patient states she had been living in a barn with farm animals and rats. Patient believes that is when her diarrhea had started. Patient does complain of some abdominal cramping, nausea, and vomiting. Patient denies chest pain, fever, chills, lower extremity edema, or shortness of breath - Exam Vitals: Temp Pulse Resp BP Pulse Ox 98.3 F 86 17 123/85 96 05/18/19 12:36 05/18/19 12:36 05/18/19 12:36 05/18/19 12:36 05/18/19 12:36 Exam: General: NAD. Well-appearing. Skin: Multiple macular lesions on extremities. Warm and dry. HEENT: Moist mucous membranes. No conjunctivae pallor. Neck: No lymphadenopathy. No JVD. No carotid bruits. No palpable thyroid. Chest: Normal thoracic expansion. Normal breath sounds. Clear to auscultation. Heart: Normal S1 & S2; rhythmic. No rubs or murmurs. Abdomen: Non-distended, soft and mildly tender to palpation predominantly in the right flank. No peritoneal reaction. Extremities: No clubbing, cyanosis or edema. No calf tenderness. Normal distal pulses. Neurological: Awake, alert and oriented to person, place and time. No focal deficits. Psych: Affect appropriate. - Assessment and Plan (1) Ileus Current Visit: Yes Status: Acute Assessment and Plan: She presented with nausea and diarrhea. CT scan was performed which showed a large amount of distention and air in the small and large bowel with possible ileus related to ventricular colitis. NG tube placement attempted by both nursing and myself, but patient was unable to tolerate leaving the NG tube in place and pulled it out herself. Patient placed nothing by mouth for bowel rest. -GI consulted, patient started on simethicone 125 mg 4 times a day. -Surgery consulted, recommended milk of molasses enema to decompress ileus. (2) Abdominal pain Current Visit: Yes Status: Acute Assessment and Plan: Secondary to ileus and n/v/d. Described as cramping and has improved since admission. -Plan as stated above in ileus. (3) Diarrhea Current Visit: Yes Status: Acute Assessment and Plan: Patient states she has been having 5 days of diarrhea and abdominal cramping prior to arrival. Patient states she was living in a barn with rats and other animals, defecating in a bucket, and drinking from a water hose for several days. Consistency described as yellow in color and mucoid in consistency. Patient's white blood count stable since admission -Stool sample collection ordered -Ova/parasites exam ordered -Due to ileus will give patient milk of molasses enema (4) Nausea & vomiting Current Visit: Yes Status: Acute Assessment and Plan: Patient with nausea and some retching without production of vomitus following successful NG tube placement prior to patient removing NG tube. -4 mg Zofran every 6 hours ordered (5) Hypokalemia Current Visit: Yes Status: Acute Assessment and Plan: Potassium of 2.7 on admission -Pt could not tolerate IV KCl with lidocaine due to flushing and nausea -Attempting to give pt 20 meq without lidocaine now -Pt NPO due to ileus so PO KCl is not possible. - Time Spent with Patient Total time spent is greater than 50% in coordination of care (as documented) at patient's floor/unit and/or counseling patient: Internal Medicine: Result - Labs CBC & Chem 7: 05/18/19 00:32 05/18/19 00:32 Labs: Short CBC 05/17/19 05/18/19 Range/Units 19:34 00:32 WBC 6.9 7.5 (4.3-11.1) K/mcL Hgb 14.0 13.1 (11.5-15.4) g/dL Hct 41.6 38.0 (35.3-44.9) % Plt Count 279 280 (140-400) K/mcL Neutrophils # 3.2 3.9 (1.6-8.9) K/mcL BMP 05/17/19 05/18/19 19:34 00:32 Sodium 137 135 L Potassium 4.4 2.9 L D Chloride 103 104 Carbon Dioxide 24 21 L BUN 13 10 Creatinine 0.93 0.78 Glucose 98 112 H Calcium 9.9 9.0 Liver Function 05/17/19 Range/Units 19:34 Total Bilirubin 0.6 (0.3-1.0) mg/dL Direct Bilirubin 0.2 (0.0-0.2) mg/dL AST 16 (13-39) Units/L ALT 11 (7-52) Units/L Alkaline Phosphatase 57 (34-104) Units/L Albumin 4.5 (3.5-5.7) g/dL Urine 05/17/19 Range/Units 19:54 Urine Color Dark Yellow (Yellow) Urine Clarity Cloudy A (Clear) Urine pH 5.5 (5.0-8.0) pH Units Ur Specific [place] > 1.030 H (1.010-1.025) Urine Protein Trace (Neg-Trace) mg/dL Urine Glucose (UA) Normal (Normal) mg/dL - Impressions Impressions Abdomen/Pelvis CT 05/17/19 19:48 IMPRESSION: At least moderate distension of the stomach with fluid, gas and food debris. Wall thickening of the distal stomach is noted, possibly due to lack of distention of the viscus. Correlation for inflammation is recommended. Distention of the entire small and large bowel with fluid and gas, possibly ileus related to enterocolitis. Distal obstruction is not excluded. D/ / Courtney Rojas Cha, MD / Courtney Rojas Cha, MD Interpreting Provider: Courtney Rojas Cha, MD Consult Discharge Plan - Plan Referrals: Maddi Morris, [employer] [Primary Care Provider] - <Mohan Lemus - Last Filed: 05/18/19 18:47> Hospitalist Progress Note - Encounter Date of Encounter: 05/18/19 - Exam Vitals: Temp Pulse Resp BP Pulse Ox 98.3 F 86 17 123/85 96 05/18/19 12:36 05/18/19 12:36 05/18/19 12:36 05/18/19 12:36 05/18/19 12:36 - Time Spent with Patient Total time spent is greater than 50% in coordination of care (as documented) at patient's floor/unit and/or counseling patient: Internal Medicine: Result - Labs CBC & Chem 7: 05/18/19 00:32 05/18/19 00:32 Labs: Short CBC 05/17/19 05/18/19 Range/Units 19:34 00:32 WBC 6.9 7.5 (4.3-11.1) K/mcL Hgb 14.0 13.1 (11.5-15.4) g/dL Hct 41.6 38.0 (35.3-44.9) % Plt Count 279 280 (140-400) K/mcL Neutrophils # 3.2 3.9 (1.6-8.9) K/mcL BMP 05/17/19 05/18/19 19:34 00:32 Sodium 137 135 L Potassium 4.4 2.9 L D Chloride 103 104 Carbon Dioxide 24 21 L BUN 13 10 Creatinine 0.93 0.78 Glucose 98 112 H Calcium 9.9 9.0 Liver Function 05/17/19 Range/Units 19:34 Total Bilirubin 0.6 (0.3-1.0) mg/dL Direct Bilirubin 0.2 (0.0-0.2) mg/dL AST 16 (13-39) Units/L ALT 11 (7-52) Units/L Alkaline Phosphatase 57 (34-104) Units/L Albumin 4.5 (3.5-5.7) g/dL Urine 05/17/19 Range/Units 19:54 Urine Color Dark Yellow (Yellow) Urine Clarity Cloudy A (Clear) Urine pH 5.5 (5.0-8.0) pH Units Ur Specific [place] > 1.030 H (1.010-1.025) Urine Protein Trace (Neg-Trace) mg/dL Urine Glucose (UA) Normal (Normal) mg/dL - Impressions Impressions Abdomen/Pelvis CT 05/17/19 19:48 IMPRESSION: At least moderate distension of the stomach with fluid, gas and food debris. Wall thickening of the distal stomach is noted, possibly due to lack of distention of the viscus. Correlation for inflammation is recommended. Distention of the entire small and large bowel with fluid and gas, possibly ileus related to enterocolitis. Distal obstruction is not excluded. D/ / Courtney Rojas Cha, MD / Courtney Rojas Cha, MD Interpreting Provider: Courtney Rojas Cha, MD - Attending Attestation I have seen and independently assessed this patient and I agree with plan as documented Plan Ileus. Milk of molasses enema per surgery to decompress bowel. Start clears and advance as tolerated <Archie Weaver - Last Filed: 05/18/19 16:38> (2) Abdominal pain Qualifiers: Qualified Code(s): R10.9 - Unspecified abdominal pain (4) Nausea & vomiting Qualifiers: Qualified Code(s): R11.2 - Nausea with vomiting, unspecified
[2019-05-19 04:55] LABS: Hematocrit 33.7 % (35.3-44.9); Mean Corpuscular HGB Conc 33.5 g/dL (31.6-35.5); Mean Corpuscular Volume 83.6 fL (83.0-100.0); Mean Platelet Volume 9.7 fL (9.4-12.4); Platelet Count 245 K/mcL (140-400); Red Blood Count 4.03 M/mcL (3.82-4.97); Red Cell Distribution Width 13.3 % (11.5-14.5); White Blood Count 5.6 K/mcL (4.3-11.1)
[2019-05-19 05:01] LABS: Hemoglobin 11.3 g/dL (11.5-15.4)
[2019-05-19 05:13] LABS: BUN/Creatinine Ratio 6 (6-26); Blood Urea Nitrogen 5 mg/dL (6-20); Calcium 8.2 mg/dL (8.6-10.3); Carbon Dioxide 25 mEq/L (23-29); Chloride 109 mEq/L (98-107); Glucose 101 mg/dL (70-105); Osmolality,Calculated 285 (280-300); Potassium 3.1 mEq/L (3.5-5.1); Sodium 139 mEq/L (136-145); eGFR For African Americans > 60 (> 60); eGFR For Non-African Americans > 60 (> 60)
[2019-05-19] MEDS: Pantoprazole 40 MG VIAL IVP SCH (06:28)
--- NOTE | 2019-05-19 09:12 | Event Note ---
Date of Encounter: 05/19/19 Time of Encounter: 09:12 Noted Lashon also following this patient. Given that this is a nonsurgical issue, surgery will sign off and defer management to Bakari. Thank you for allowing us to participate in Beverly's care. Please call or reconsult if any surgical questions or needs arise
--- NOTE | 2019-05-19 10:01 | Internal Med Progress Note ---
<Mohan Lemus - Last Filed: 05/19/19 13:25> Hospitalist Progress Note - Encounter Date of Encounter: 05/19/19 - Exam Vitals: Temp Pulse Resp BP Pulse Ox 97.5 F L 87 14 114/74 98 05/19/19 11:48 05/19/19 11:48 05/19/19 11:48 05/19/19 11:48 05/19/19 11:48 - Time Spent with Patient Total time spent is greater than 50% in coordination of care (as documented) at patient's floor/unit and/or counseling patient: Internal Medicine: Result - Labs CBC & Chem 7: 05/19/19 04:26 05/19/19 04:26 Labs: Short CBC 05/19/19 Range/Units 04:26 WBC 5.6 (4.3-11.1) K/mcL Hgb 11.3 L D (11.5-15.4) g/dL Hct 33.7 L (35.3-44.9) % Plt Count 245 (140-400) K/mcL BMP 05/19/19 04:26 Sodium 139 Potassium 3.1 L Chloride 109 H Carbon Dioxide 25 BUN 5 L Creatinine 0.78 Glucose 101 Calcium 8.2 L Consult Discharge Plan - Plan Referrals: Maddi Morris, [employer] [Primary Care Provider] - - Attending Attestation I have seen and independently assessed this patient and I agree with plan as documented Plan Ileus. Milk of molasses enema per surgery to decompress bowel. Patient tolerating clears , will advance diet to full liquids as tolerated Hypokalemia. Potassium replaced <Archie Weaver - Last Filed: 05/19/19 15:47> Hospitalist Progress Note - Encounter Date of Encounter: 05/19/19 Time of Encounter: 09:55 - Subjective Interval History: Patient states she is feeling better today with decreased abdominal pain and distention. Patient does not have any nausea or vomiting so far today. Patient denies chest pain, shortness of breath, abdominal pain, diarrhea, fever, or chills. - Exam Vitals: Temp Pulse Resp BP Pulse Ox 98.0 F 85 14 118/74 97 05/19/19 08:33 05/19/19 08:33 05/19/19 08:33 05/19/19 08:33 05/19/19 08:33 Exam: General: NAD. Well-appearing. Skin: Multiple macular lesions on extremities. Warm and dry. HEENT: Moist mucous membranes. No conjunctivae pallor. Neck: No lymphadenopathy. No JVD. No carotid bruits. No palpable thyroid. Chest: Normal thoracic expansion. Normal breath sounds. Clear to auscultation. Heart: Normal S1 & S2; rhythmic. No rubs or murmurs. Abdomen: Non-distended, soft and mildly tender to palpation predominantly in the right flank. No peritoneal reaction. Extremities: No clubbing, cyanosis or edema. No calf tenderness. Normal distal pulses. Neurological: Awake, alert and oriented to person, place and time. No focal deficits. Psych: Affect appropriate. - Assessment and Plan (1) Ileus Current Visit: Yes Status: Acute Assessment and Plan: She presented with nausea and diarrhea. CT scan was performed which showed a large amount of distention and air in the small and large bowel with possible ileus related to ventricular colitis. Pt reports taking numerous anti-diarrheals proir to admission. NG tube placement attempted by both nursing and myself, but patient was unable to tolerate leaving the NG tube in place and pulled it out herself. Patient placed nothing by mouth for bowel rest. GI consulted, patient started on simethicone 125 mg 4 times a day. Surgery consulted -Pt tolerating PO clear liquids well and admits to flatulence and belching. -Increased to full liquid diet -Still without bowel movement, milk and magnesium enema ordered. (2) Abdominal pain Current Visit: Yes Status: Acute Assessment and Plan: Secondary to ileus and n/v/d. Described as cramping and has improved since admission. -Plan as stated above in ileus. (3) Diarrhea Current Visit: Yes Status: Resolved Assessment and Plan: Patient states she has been having 5 days of diarrhea and abdominal cramping prior to arrival. Patient states she was living in a barn with rats and other animals, defecating in a bucket, and drinking from a water hose for several days. Consistency described as yellow in color and mucoid in consistency. Patient's white blood count stable since admission -Stool sample collection ordered -Ova/parasites exam ordered -No diarrhea since admission (4) Nausea & vomiting Current Visit: Yes Status: Acute Assessment and Plan: Patient has no complaints at this time. -4 mg Zofran every 6 hours ordered (5) Hypokalemia Current Visit: Yes Status: Acute Assessment and Plan: Potassium of 2.7 on admission Mg also low at 1.4 -Improved to 3.1 -Pt getting PO KCl and will replace MG -Recheck in am DVT Prophylaxis: SCDs - Time Spent with Patient Total time spent is greater than 50% in coordination of care (as documented) at patient's floor/unit and/or counseling patient: Internal Medicine: Result - Labs CBC & Chem 7: 05/19/19 04:26 05/19/19 04:26 Labs: Short CBC 05/19/19 Range/Units 04:26 WBC 5.6 (4.3-11.1) K/mcL Hgb 11.3 L D (11.5-15.4) g/dL Hct 33.7 L (35.3-44.9) % Plt Count 245 (140-400) K/mcL [facility] 05/19/19 04:26 Sodium 139 Potassium 3.1 L Chloride 109 H Carbon Dioxide 25 BUN 5 L Creatinine 0.78 Glucose 101 Calcium 8.2 L <Archie Weaver - Last Filed: 05/19/19 15:47> (2) Abdominal pain Qualifiers: Qualified Code(s): R10.9 - Unspecified abdominal pain (4) Nausea & vomiting Qualifiers: Qualified Code(s): R11.2 - Nausea with vomiting, unspecified
[2019-05-19] MEDS: MetroNIDAZOLE 500 MG/100 ML 500 MG/100 ML BAG IVPB SCH ×3 (10:32→23:38)
[2019-05-19] MEDS: Potassium Chloride Elixir 20 MEQ/15 ML UDC PO SCH ×2 (10:33→12:45)
[2019-05-19] MEDS: Simethicone 40 MG/0.6 ML MLS PO SCH (12:29)
[2019-05-19] MEDS: Simethicone 80 MG TAB.CHEW PO SCH ×3 (12:45→20:11)
[2019-05-19] MEDS ORDERED: Milk and Molasses Enema 200 ML RC ONE (15:43)
[2019-05-19 17:26] LABS: Hemoglobin 11.3 g/dL (11.5-15.4); Mean Corpuscular HGB Conc 33.2 g/dL (31.6-35.5); Mean Corpuscular Hemoglobin 28.3 pg (28.0-33.3); Mean Platelet Volume 9.8 fL (9.4-12.4); Platelet Count 268 K/mcL (140-400); Red Cell Distribution Width 13.7 % (11.5-14.5)
[2019-05-20 04:10] LABS: Hematocrit 34.8 % (35.3-44.9); Hemoglobin 11.6 g/dL (11.5-15.4); Mean Corpuscular HGB Conc 33.3 g/dL (31.6-35.5); Mean Corpuscular Hemoglobin 28.6 pg (28.0-33.3); Mean Corpuscular Volume 85.7 fL (83.0-100.0); Mean Platelet Volume 9.6 fL (9.4-12.4); Platelet Count 257 K/mcL (140-400); Red Blood Count 4.06 M/mcL (3.82-4.97); Red Cell Distribution Width 13.5 % (11.5-14.5); White Blood Count 6.3 K/mcL (4.3-11.1)
[2019-05-20 04:29] LABS: BUN/Creatinine Ratio 4 (6-26); Blood Urea Nitrogen 3 mg/dL (6-20); Calcium 8.3 mg/dL (8.6-10.3); Carbon Dioxide 26 mEq/L (23-29); Chloride 108 mEq/L (98-107); Glucose 102 mg/dL (70-105); Magnesium 2.1 mg/dL (1.6-2.6); Osmolality,Calculated 285 (280-300); Potassium 3.8 mEq/L (3.5-5.1); Sodium 139 mEq/L (136-145); eGFR For African Americans > 60 (> 60); eGFR For Non-African Americans > 60 (> 60)
[2019-05-20] MEDS: Pantoprazole 40 MG VIAL IVP SCH (05:42)
[2019-05-20 06:47] VITALS: BP 113/79
[2019-05-20] MEDS: Simethicone 80 MG TAB.CHEW PO SCH (07:31)
[2019-05-20] MEDS: MetroNIDAZOLE 500 MG/100 ML 500 MG/100 ML BAG IVPB SCH (07:31)
--- NOTE | 2019-05-20 09:36 | Discharge Summary ---
<Archie Weaver N - Last Filed: 05/20/19 13:42> - NOTES TO OUTPATIENT PROVIDER Notes to Outpatient Provider: Pt admitted for diarrhea over a few days and abd cramping. Pt found to have an ileus on CT with large amounts of gas-fluid levels and dx with enterocolitis. Pt sxs improved after a milk and molasses enema and diet was advanced. Pt given flagyl for home. Pt was also found to be hypokalemic which resolved after supplementation. Will need BMP recheck Orders not resulted at time of discharge: Pending orders 05/18/19 00:32 Culture,Blood [BC] Routine 05/18/19 10:24 Ova & Parasite Exam Routine Date of Encounter: 05/20/19 Time of Encounter: 09:35 - Discharge Diagnosis (1) Ileus Priority: Primary Status: Acute (2) Abdominal pain Priority: Secondary Status: Acute Qualifiers: Qualified Code(s): R10.9 - Unspecified abdominal pain (3) Diarrhea Priority: Secondary Status: Resolved Qualifiers: Qualified Code(s): R19.7 - Diarrhea, unspecified (4) Nausea & vomiting Priority: Secondary Status: Acute Qualifiers: Qualified Code(s): R11.2 - Nausea with vomiting, unspecified (5) Hypokalemia Priority: Secondary Status: Acute Hospital course: Ms. Lee is a 33 year old female with a past medical history significant for depression and IVDA who presented with 5 days of diarrhea and abdominal cramping. Patient states the diarrhea was yellowish and mucoid in consistency. Patient states she was living in a barn where there were animals and rats and drank from a water hose for a few days prior to the diarrhea starting. Patient started on Cipro and Flagyl. A CT scan was performed of the patient's abdomen showing moderate distention of the stomach as well as distention of the entire small bowel and large bowel with fluid and gas suggestive of ileus possibly related to enterocolitis. Attempted to place an NG tube, but patient was not able to tolerate. Patient was placed nothing by mouth and surgery and GI were consulted. GI recommended Gas-X 125 mg 4 times a day. Surgery saw patient and wanted patient to have NG tube placed, but patient refused. Patient also found to have hypo-kalemia upon admission. Potassium supplementation was began with KCl with lidocaine, but patient was unable to tolerate. We then switched to KCl without lidocaine IV which patient was able to tolerate and potassium levels normalized. Patient was given milk and molasses enema which produced 3 large bowel movements with relief of patient's symptoms. Patient's diet was advanced from clear liquid to solid food at lunch and it was tolerated patient is able to go home. Discharge discussed with: patient - Time Spent with Patient Total time spent providing and/or coordinating discharge services: Time spent: Greater than 30 minutes - Discharge Medications Prescriptions: New metroNIDAZOLE [Flagyl] 500 mg PO TID 5 Days #15 tablet Continued Paroxetine [Paxil] 40 mg PO DAILY Discontinued Loperamide HCl [Anti-Diarrheal] 2 mg PO PER PKG DI PRN PRN Reason: Diarrhea Home Medications: Paroxetine [Paxil] 40 mg PO DAILY 05/17/19 [History] metroNIDAZOLE [Flagyl] 500 mg PO TID 5 Days #15 tablet 05/20/19 [Rx] Allergies/Adverse Reactions: Allergy/AdvReac Type Severity Reaction Status Date / Time No Known Allergies Allergy Verified 05/17/19 22:50 Date of admission: 05/17/19 23:06 Primary care physician: Maddi Morris CNP Consults: 05/17/19 22:32 Consult to Gastroenterology [CONS] Stat Consulting Provider: [facility] [place] Reason for Consult: Ileus vs Obstruction Dr. Simms Time Notified: 22:33 Call Completed: No 05/17/19 22:37 Consult to Surgery [CONS] Stat Consulting Provider: Acute Care Surgery Reason for Consult: Ileus versus bowel obstruction Dr. Hathaway Time Notified: 22:38 Call Completed: No 05/18/19 00:00 Consult to Nutrition [CONS] Routine Comment: Consulting Provider: NUTRITION Reason for Dietary Consult: MST Score Discharging clinician: Archie Weaver - Constitutional Vitals: Temp Pulse Resp BP Pulse Ox 98.3 F 79 14 113/79 97 05/20/19 06:43 05/20/19 06:43 05/20/19 06:43 05/20/19 06:43 05/20/19 06:43 General appearance: Present: A&O X 3, pleasant, no acute distress, answers questions appropriately Exam: General: NAD. Well-appearing. Skin: Multiple macular lesions on extremities. Warm and dry. HEENT: Moist mucous membranes. No conjunctivae pallor. Neck: No lymphadenopathy. No JVD. No carotid bruits. No palpable thyroid. Chest: Normal thoracic expansion. Normal breath sounds. Clear to auscultation. Heart: Normal S1 & S2; rhythmic. No rubs or murmurs. Abdomen: Non-distended, soft. No peritoneal reaction. Extremities: No clubbing, cyanosis or edema. No calf tenderness. Normal distal pulses. Neurological: Awake, alert and oriented to person, place and time. No focal deficits. Psych: Affect appropriate. - Patient Status Disposition: Home, Self-Care Condition: Good Functional capacity at discharge: independent ambulation Overall status at discharge: patient is back to baseline - Discharge Instructions Follow Up With: [facility] [Outside] - 05/25/19 1:00 pm (Please arrive 15 minutes early to appointment.) Maddi Morris CNP [Primary Care Provider] - (Web request. Office will call with date and time of appointment. Thank you) - Diet and Activity Activity: increase activity as tolerated Diet: regular diet <Mohan Lemus - Last Filed: 05/20/19 14:04> Orders not resulted at time of discharge: Pending orders 05/18/19 00:32 Culture,Blood [BC] Routine 05/18/19 10:24 Ova & Parasite Exam Routine Date of Encounter: 05/20/19 Hospital course: Ms. Lee is a 33 year old female - Time Spent with Patient Total time spent providing and/or coordinating discharge services: Date of admission: 05/17/19 23:06 Primary care physician: Maddi Morris CNP Consults: 05/17/19 22:32 Consult to Gastroenterology [CONS] Stat Consulting Provider: [facility] [place] Reason for Consult: Ileus vs Obstruction Dr. Simms Time Notified: 22:33 Call Completed: No 05/17/19 22:37 Consult to Surgery [CONS] Stat Consulting Provider: Acute Care Surgery Reason for Consult: Ileus versus bowel obstruction Dr. Hathaway Time Notified: 22:38 Call Completed: No 05/18/19 00:00 Consult to Nutrition [CONS] Routine Comment: Consulting Provider: NUTRITION Reason for Dietary Consult: MST Score - Constitutional Vitals: Temp Pulse Resp BP Pulse Ox 98.3 F 79 14 113/79 97 05/20/19 06:43 05/20/19 06:43 05/20/19 06:43 05/20/19 06:43 05/20/19 06:43 - Attending Attestation I have seen and independently assessed this patient and I agree with plan as documented Exam Gen. NAD CVS. S1 S2 Resp. CTAB GI. soft, NT, ND, +BS Ext. 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 Milk of molasses enema per surgery to decompress bowel. Diet advanced to regular today. Okay for discharge Hypokalemia. Potassium replaced
== END 2019-05-20 14:50 | disposition home or self-care (01) ==
LOC: CDU 19:03 → EMEROOARM 19:03 → CDU 23:11 → 3ANU 05-18 18:36
PROVIDERS: ADMIT Internal Medicine; ATTEND Internal Medicine